=== PATIENT | female | born 1980 | race African-American/Black ===

== ENCOUNTER 2020-03-04 19:53 | Emergency (ER) | payer OTHER, SELFPAY ==
--- NOTE | ~2020-03-04 | XR_ITS ---
XR chest 2V DATE: 03/04/2020 20:49 INDICATION: Midsternal chest pain radiating to neck. History of hypertension. TECHNIQUE: AP and lateral views COMPARISON: None FINDINGS: Heart size is borderline or mildly enlarged. No hilar or mediastinal enlargement. No pulmon wai infiltrate or consolidation, pleural effusion or pulmonary vascular congestion or pneumothorax. IMPRESSION: Borderline or mild cardiomegaly is suggested No active pulmonary disease Reviewed, dictated and finalized at location [facility].
--- NOTE | ~2020-03-04 | CT_ITS ---
EXAMINATION: CTA chest PE protocol DATE: 03/04/2020 21:41 INDICATION: Chest pain, sternal area, radiating to neck. Hypertension. TECHNIQUE: Computed tomography angiography (CTA) of the chest was performed with 100 mL Omnipaque-350 intravenous contrast timed to evaluate the pulmonary arteries. Coronal maximum intensity projection 3D-reconstructions were created by the technologist. Automated exposure control and iterative reconst ruction technique were employed. Exam dose: 853.75 mGy-cm total exam DLP. COMPARISON: 03/04/2022 view chest FINDINGS: There is diagnostic contrast enhancement of the pulmonary arteries and no evidence of pulmo nary embolism. No thoracic aortic aneurysm or dissection. No hilar or mediastinal mass lesion or lymphadenopathy. Ca rdiomegaly. No pericardial or pleural effusion. No pulmonary infiltrate or consolidation or pulmonary mass lesion is evident. Degenerative spurring of the thoracic spine. IMPRESSION: No evidence of pulmonary embolism Cardiomegaly Reviewed, dictated and finalized at [facility]. Reviewed, dictated and finalized at location [facility].
--- NOTE | 2020-03-04 19:56 | ECG_ITS ---
Measurements Intervals [place] Rate: 88 P: 56 HI: 148 QRS: -30 QRSD: 106 T: 31 QT: 384 QTc: 467 Interpretive Statements SINUS RHYTHM POSSIBLE LEFT ATRIAL ENLARGEMENT INCOMPLETE RIGHT BUNDLE BRANCH BLOCK POSSIBLE LEFT VENTRICULAR HYPERTROPHY BASELINE ARTIFACT- I, II BORDERLINE ECG Electronically Signed On 03-04-2020 20:46:32 CDT by Fitz Mock D.O.
[2020-03-04 19:57] VITALS: PULSE 105; RESP 22; TEMP 36.6; O2SAT 100
--- NOTE | 2020-03-04 20:02 | ED.CHESTPAIN ---
HPI - Chest Pain General Chief Complaint: Chest Pain Stated Complaint: sternal pain Time Seen by Provider: 03/04/20 19:57 Source: RN notes reviewed History of Present Illness HPI narrative: Patient presents emergency department from home via EMS for chest pain. Patient states symptoms began 4 days ago. The pain is located in the midsternal chest and goes up into her neck down into her epigastric region. Patient states pain is described as burning in nature. Denies any fevers or chills shortness of breath nausea vomiting diarrhea or any other symptoms. States she took no previous pain medication for the symptoms. Denies any previous cardiac history Related Data Allergies Allergy/AdvReac Type Severity Reaction Status Date / Time No Known Allergies Allergy Verified 03/04/20 20:01 Review of Systems Review of Systems: Narrative: Gen.: Denies fevers or chills Eyes: Denies eye pain or visual change ENT: Denies congestion Respiratory: Denies shortness of breath or cough CV: Reports chest pain GI: Denies abdominal pain nausea, emesis or diarrhea Musculoskeletal: Denies back pain or muscle pain Neuro: Denies numbness, tingling, weakness or focal weakness Skin: Denies rash Except as documented, all other systems reviewed and negative PMFSH Past Medical History Medical History (Updated 03/05/20 @ 00:05 by Markus Lopez DO) Patient denies significant medical history Social History Social History (Updated 03/04/20 @ 20:03 by Markus Lopez DO) Smoking status: Current every day smoker Gender identity (if verbalized by the patient): Female Exam Narrative: Exam Narrative: APPEARANCE: No acute distress, nontoxic, resting in bed EYES: EOMI HEENT: Normocephalic, atraumatic, OMM RESPIRATORY: No respiratory distress Clear to auscultation bilaterally with no rhonchi wheezing or rales. CARDIOVASCULAR: Regular rate and rhythm without murmurs rubs or gallops. Chest: Tender palpation over mid sternum ABDOMINAL: Soft, nondistended, tender palpation epigastric region, no tenderness right upper quadrant and left upper quadrant, no tenderness right lower quadrant left lower quadrant, no rebound or guarding MUSCULOSKELETAl: Moves all extremities. No clubbing, cyanosis or edema. NEURO: Awake and alert. Following commands, speech normal, no focal deficits SKIN:: Warm, dry. No rashes lesions or abrasions PSYCHIATRIC: Normal affect/mood, Course Course Emergency Course: Patient states chest pain resolved following morphine Discussed with Dr. Walker presentation work-up. Agrees with plan for discharge after 3-hour troponin with follow-up as an outpatient Discussed with patient results of workup and diagnosis. Discussed need for follow-up with primary care, proper use of medication, and reasons to return to the emergency department. Patient understands and agrees to current treatment plan Vital Signs Vital signs: Vital Signs Temperature 98 F 03/04/20 19:57 Pulse Rate 105 H 03/04/20 19:57 Respiratory Rate 22 H 03/04/20 19:57 Pulse Oximetry 100 03/04/20 19:57 Temperature 98 F 03/04/20 19:57 Pulse Rate 88 03/04/20 21:45 Respiratory Rate 16 03/04/20 21:45 Blood Pressure 172/84 H 03/04/20 21:45 Pulse Oximetry 97 03/04/20 21:45 MDM - Chest Pain MDM Narrative Medical decision making narrative: Patient's EKGs and labs are without significant high risk changes. Cardiac risk factors reviewed. Patient is felt likely low risk for ACS and reasonable for further risk stratification testing as an outpatient. CTA chest shows no signs of aneurysm PE or pneumonia. Patient is felt to be a reasonable candidate for continued evaluation as an outpatient Lab Data Result diagrams: 03/04/20 20:06 03/04/20 20:06 Labs: Lab Results 03/04/20 03/04/20 03/04/20 Range/Units 20:06 20:06 20:06 WBC 5.1 (4.5-10.0) K/mm3 RBC 4.07 L (4.2-5.4) M/mm3 Hgb 12.5 (12.0-15.0) g/dL Hct
[2020-03-04 20:15] LABS: Basophils Percent Auto 0.2 % (0.2-1.2); Eosinophils Absolute Auto 0.1 K/mm3 (0-0.3); Hematocrit 37.6 % (37.0-47.0); Hemoglobin 12.5 g/dL (12.0-15.0); Lymphocytes Absolute Auto 1.58 K/mm3 (0.9-3.2); Lymphocytes Percent Auto 30.7 % (18.3-44.2); Mean Corpuscular HGB Conc 33.2 g/dl (32-36); Mean Corpuscular Hemoglobin 30.7 pg (26-34); Mean Corpuscular Volume 92.4 fl (80-100); Mean Platelet Volume 9.7 fl (7.4-10.4); Monocytes Absolute Auto 0.5 K/mm3 (0.1-0.6); Monocytes Percent Auto 10.3 % (2.6-8.5); Neutrophils Percent Auto 57.8 % (45.5-73.1); Platelet Count Result 252 k/mm3 (150-375); Red Blood Count 4.07 M/mm3 (4.2-5.4); Red Cell Distribution Width 14.7 % (11.5-14.5); White Blood Count 5.1 K/mm3 (4.5-10.0)
[2020-03-04 20:23] VITALS: PULSE 84
[2020-03-04 20:24] LABS: Prothrombin Time 12.7 Seconds (11.1-14.7)
[2020-03-04 20:26] LABS: Alanine Aminotransferase 15 U/L (4-35); Albumin Level 4.3 g/dL (3.5-5.1); Alkaline Phosphatase 74 U/L (38-126); Aspartate Amino Transferase 28 U/L (14-36); Bilirubin,Total 0.3 mg/dL (0.2-1.3); Blood Urea Nitrogen 9 mg/dL (7-17); Calcium 8.8 mg/dL (8.4-10.2); Carbon Dioxide 20 mmol/L (22-30); Chloride 114 mmol/L (98-107); Estimated CRCL calculation 94 ml/min; Estimated Glomerular Filt Rate > 60; Glucose 94 mg/dL (65-105); Lipase 83 U/L (23-300); Potassium 3.6 mmol/L (3.4-5.0); Sodium 144 mmol/L (137-145)
[2020-03-04 20:27] LABS: D Dimer 0.71 ug/mL (<0.48)
[2020-03-04 20:38] LABS: Troponin I < 0.012 ng/mL (0.000-0.034)
[2020-03-04] MEDS: MORPHINE SULFATE 4 MG/ML INJ IV PUSH (21:19)
[2020-03-04 21:45] VITALS: BP 172/84; PULSE 88; RESP 16; O2SAT 97
[2020-03-04 23:41] LABS: Troponin I < 0.012 ng/mL (0.000-0.034)
[2020-03-05 00:46] VITALS: BP 154/89; PULSE 84; RESP 16; O2SAT 100
== END 2020-03-05 00:46 | disposition home or self-care (01) ==
PROVIDERS: Emergency Provider Emergency Medicine
DX: R07.89 Other chest pain (principal); F17.210 Nicotine dependence, cigarettes, uncomplicated
CPT/HCPCS: 36415; 71046; 71275; 80048; 80076; 83690; 84484; 85025; 85380; 85610; 85730; 93005; 96374; 99284; A9270; J2270; Q9967